=== PATIENT | male | born 1940 | race Caucasian/White ===

== ENCOUNTER 2018-01-29 11:02 | Emergency (ER) | payer MEDICARE ==
--- NOTE | 2018-01-29 17:42 | RAD ---
RIGHT HAND THREE VIEWS: 01/29/18 Arthritic changes are particularly prominent in the DIP joint of the index finger which has some slig ht radial subluxation of the distal phalanx, as well as the first carpometacarpal joint. There may be mild joint space narrowing of the second and third MCP joints. Lesser arthritic changes are seen in several of the other IP joints. The carpals all appeared intact. IMPRESSION: Generalized arthritic changes as noted, most severe in the DIP joint of the index finger and the firs t carpometacarpal joint. POS: HOME
== END 2018-01-29 11:53 | disposition home or self-care (01) ==
LOC: BURERS 11:02
DX: S61.411A Laceration without foreign body of right hand, initial encounter (principal); W27.0XXA Contact with workbench tool, initial encounter